=== PATIENT | female | born 1950 | race Caucasian/White ===

== ENCOUNTER 2018-10-26 14:58 | Inpatient (IN) | payer MEDICARE, OTHER ==
[2018-10-26 15:49] LABS: Actual Bicarbonate (HCO3a) 8.2 mEq/L (22-28); Analyzer IN Cardio ER; Base Excess (BEa) -16.3 mEq/L (-2.0 to +3.0); Calcium, Ionized 0.97 mmol/L (1.12-1.30); Carboxyhemoglobin (COHb) 0.3 gm% (0.0-3.0); Hemoglobin (Hb) 12.5 g/dL (12.0-16.0); O2 Tension (PaO2) 110.4 mmHg (> 80.0); Potassium - ABG Lab 3.73 mmol/L (3.70-5.30); pH, Arterial 7.27 (7.35-7.45)
[2018-10-26 15:54] LABS: CO2 Tension 18.2 mmHg (35.0-45.0); Puncture Site LRA
[2018-10-26 16:32] LABS: CKMB 28.4 ng/mL (0-6.6)
[2018-10-26 19:45] LABS: Troponin I 0.044 ng/mL (< 0.028)
[2018-10-26] MEDS: Sodium Bicarbonate 150 MEQ in Dextrose 5% in Water 1,000 ML IV SCH (19:45)
[2018-10-26] MEDS ORDERED: Guaifenesin DM 100-10/5 ML UDCUP PO PRN (19:49)
[2018-10-26] MEDS ORDERED: Promethazine HCl 25 MG/ML VIAL IM/IV PRN (19:49)
[2018-10-26] MEDS ORDERED: Senokot S 8.6-50 MG TAB PO PRN (19:49)
[2018-10-26] MEDS ORDERED: Ondansetron PF 4 MG/2 ML Vial IVP PRN (19:49)
[2018-10-26] MEDS ORDERED: Bisacodyl 10 MG SUPP PR PRN (19:49)
[2018-10-26] MEDS ORDERED: Magnesium 2 GM/50 ML 2 GM in Premix Bag 1 BAG IVPB SCH (20:15)
[2018-10-26] MEDS: Multivitamins, Adult 10 ML, Folic Acid 1 MG, Thiamine HCl 100 MG in Dextrose 5 %-0.45 %... IV SCH (20:31)
[2018-10-26] MEDS: Pantoprazole 40 MG VIAL IVP SCH (20:32)
[2018-10-26] MEDS: Acetaminophen 325 MG TAB PO PRN (20:32)
--- NOTE | 2018-10-26 20:47 | HP ---
REASON FOR ADMISSION: Acute renal failure, severe metabolic acidosis, mild increased osmolal gap, alcohol abuse, [id number] [place], thrombocytopenia. HISTORY OF PRESENTING ILLNESS: The patient gives history of vague symptoms including headache in the occipital area for the last 9 months. She has been feeling sick to her stomach and has been having off and on vomiting episodes, which has led to her not eating well. The patient says these frequencies were usually 5 to 6 weeks and now has become weekly episodes. This morning, she felt like she had pain all over her body and was feeling very weak. Her upper thighs were painful to touch on both sides. She could not walk well and was wobbly. She in fact fell three times from last evening. The disturbance with walking is from last 5 to 6 days now. No complaints of urinary frequency or urgency. She has not noticed any change in her urinary color as far as she remembers. No complaints of chest pain or palpitation. No complaints of fever, cough, or expectoration. She denies drinking anything, but vodka and Mae. From yesterday evening, she has not been able to keep anything down as she has been vomiting. It is not bilious, but has severe retching and nauseous feeling. No prior history of gastric ulcers. Has retrosternal burning sensation from retching now. PAST MEDICAL AND SURGICAL HISTORY: Prior colonoscopies x2 with no malignancy or polyps removed, hypertension, depression, left total knee replacement, has removal of all of her top teeth and four on the bottom, and alcohol abuse. CURRENT MEDICATIONS: She takes; 1. Losartan with hydrochlorothiazide 100/25 mg p.o. daily. 2. Sertraline 50 mg daily. 3. Toprol-XL 50 mg daily. 4. Bupropion extended release 100 mg daily. ALLERGIES: NO KNOWN DRUG ALLERGIES. PERSONAL HISTORY: Drinks 2 to 3 drinks of vodka. The patient says she drinks 1 -1/2 ounces of vodka x3 at bedtime. She drinks Mae which she makes every month or so at home. She occasionally drinks rum with Coca Cola, but usually is when they have a get-together or so. Does not abuse drugs. No history of smoking. She ambulates by herself. Lives with her . 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 FAMILY HISTORY: Mother at the age of 89 years from natural causes. Father at the age of 82 years, he has had history of obsessive compulsive disorder. The patient has a son, who lives in [place]. REVIEW OF SYSTEMS: CONSTITUTIONAL: Negative for weight loss or gain, ability to conduct usual activities. SKIN: Negative for rash, itching. EYES: Negative for double vision, pain. ENT/MOUTH: Negative for nose bleeding, neck stiffness, pain, tenderness. CARDIOVASCULAR: Negative for palpitations, dyspnea on exertion, orthopnea. RESPIRATORY: Negative for shortness of breath, wheezing, cough, hemoptysis, fever or night sweats. GASTROINTESTINAL: Negative for poor appetite, abdominal pain, heartburn, nausea , vomiting, constipation, or diarrhea. GENITOURINARY: Negative for urgency, frequency, dysuria, nocturia. MUSCULOSKELETAL: Negative for pain, swelling. NEUROLOGIC/PSYCHIATRIC: Negative for anxiety, depression. ALLERGY/IMMUNOLOGIC: Negative for skin rash, bleeding tendency. PHYSICAL EXAMINATION: GENERAL: The patient is a 68-year-old female, who is currently not in any acute distress. VITAL SIGNS: Blood pressure 124/56, pulse 96 per minute, respiratory rate 20 per minute, temperature 97.9 degrees Fahrenheit, saturating 100% on room air. NECK: Supple. No elevated JVD. HEENT: Eyes; extraocular muscles intact. Pupils are reacting to light. Oral cavity, mucous membranes are dry. No exudates or congestion. CARDIOVASCULAR: S1 and S2, heard. Regular rhythm. RESPIRATORY: Air entry 1+ bilateral. No rales or rhonchi. ABDOMEN: Soft. Bowel sounds heard. No tenderness, rigidity, or guarding. EXTREMITIES: No peripheral edema or calf tenderness. VASCULAR SYSTEM: Peripheral pulses 1+ bilateral. No ischemic ulcerations or gangrene. CENTRAL NERVOUS SYSTEM: No gross focal deficits noted. The patient has some hyperesthesias on bilateral thighs. She moves all 4 extremities with good strength. Reflexes are 2+ bilateral. Babinski is downgoing. PSYCHIATRIC: The patient is a bit depressed, otherwise no hallucinations or delusions. LABORATORY DATA: White count of 5, hemoglobin and hematocrit are 13 and 42, platelet count 76, MCV is 108, with 79% neutrophils. Blood gas done shows a pH of 7.27, pCO2 of 18, PO2 of 110, bicarb on the blood gas is 8.2, carboxyhemoglobin 0.3, methemoglobin levels are 1.0 on the blood gas. Sodium 132, chloride 78, serum bicarb 9, BUN 44, creatinine 4.3, anion gap of 49, lactic acid 3.1, serum osmolality 303, magnesium 1.2. AST is 101, ALT 54, alkaline phosphatase 152, total bilirubin 1.7. CK level 727, CK-MB 29, troponin-I 0.03, BNP is 33. Albumin 4.4, lipase is 22. Salicylates are less than 8. Plasma alcohol 21. Chest x-ray done, shows no acute cardiopulmonary process. CT brain done, shows no acute intracranial process. CLINICAL IMPRESSION AND PLAN: The patient will be admitted to telemetry for acute renal failure; severe metabolic acidosis; mild increased osmolar gap at 13; macrocytosis, likely due to alcohol usage; elevated LFTs, likely due to alcoholic hepatitis; [id number] myocardial infarction with troponin of 0.03. I have consulted Dr. Bah for Nephrology. The patient will be on banana bag at 60 mL/hour along with D5 water with sodium bicarbonate at 100 mL/hour per Nephrology's advice. We will obtain urine electrolytes, urinalysis, urine osmolality, urine drug screen, folic acid and B12 levels, acute hepatitis panel, thyroid function tests. The patient is currently not taking any thyroid replacement, but she has been on Synthroid before. Hence, we will obtain a stat TSH. We will also obtain ultrasound of the kidneys , echo with 2D Doppler for LV function, MRI brain in view of the patient's slow cognition with alcohol intake and wobbly gait, to rule out alcohol induced injury, also to rule out PRES, although her blood pressures have been stable now. She also has vague occipital headache with thigh parasthesias, vomiting to r/o mass. We will continue to closely monitor her on telemetry. The patient is a full code. This was discussed with her and power of quality auditor is her , who is also currently hospitalized here. Job ID: [id number] MTDD
[2018-10-26 20:49] LABS: Iron 116 ug/dL (50-170); Iron Binding Capacity, Total 188 mcg/dL (265-497)
[2018-10-26 20:50] LABS: Bilirubin Large (Negative); Blood, Urine Large (Negative); Clarity CLOUDY (Clear); Glucose, Urine (Dipstick) Negative (Negative); Leukocyte Negative (Negative); Nitrite Negative (Negative); Protein, Urine (Dipstick) 100 mg/dL (Neg-Trace); Specific Gravity, Urine 1.013 (1.002-1.036); pH, Urine 5.5 (5.0-9.0)
[2018-10-26 20:53] LABS: Hyaline Casts/LPF 7-10 HYALINE CAST LPF (0-3 Hyaline); Pathc Cast-AUWi Flag 1.49 (0-2.49)
[2018-10-26 20:57] LABS: Medtox Reader # READER 1
[2018-10-26 20:58] LABS: Amphetamine Not Detected (NotDetected); Barbiturates Screen Not Detected (NotDetected); Benzodiazepine Screen Not Detected (NotDetected); Cocaine Metabolite Screen Not Detected (NotDetected); Medtox Control Line Valid? VALID (VALID); Methadone Not Detected (NotDetected); Methamphetamine Not Detected (NotDetected); Opiate Screen Not Detected (NotDetected); Oxycodone Screen Not Detected (NotDetected); Phencyclidine (PCP) Not Detected (NotDetected); THC/Cannabinoid Screen Not Detected (NotDetected); Tricyclic Screen Not Detected (NotDetected); Yeast-AUWi Flag 223.6 (0-25.0)
[2018-10-26 21:07] LABS: Potassium, Urine 30.3 mmol/L
[2018-10-26 21:21] LABS: Folate (Folic Acid) 1.9 ng/mL (7.0-31.4)
[2018-10-26 21:23] LABS: Bacteria/HPF Rare-Few HPF (None Seen)
[2018-10-26 21:55] LABS: Thyroid Stimulating Hormone 1.1304 uIU/mL (0.35-4.94)
--- NOTE | 2018-10-26 22:28 | ULT ---
US Renal Bilateral STANDARD: 10/26/2018 9:23 PM CLINICAL HISTORY: Acute kidney injury; evaluate for obstruction. STUDY: Renal ultrasound COMPARISON: None. FINDINGS: Right kidney: Echogenicity: Normal. Masses/cysts: None. Hydronephrosis: None. Calcifications: None. Length: 9.7 cm Left kidney: Echogenicity: Normal. Masses/cysts: None. Hydronephrosis: None. Calcifications: None. Length: 10.0 cm Limited visualization of the urinary bladder is unremarkable. Both ureteral jets were seen. IMPRESSION: Unremarkable renal ultrasound
[2018-10-26 22:37] LABS: HBCM Index 0.07 S/CO (0-0.79); HBSAg Index 0.24 S/CO (0-0.99); Hep A IgM AB Non-Reactive (NonReactive); Hep A IgM S/CO 0.38 S/CO (0-0.79); Hep B Surf Ag Non-Reactive S/CO (NonReactive); Hep C IgG Ab Non-Reactive (NonReactive); Hep C Index 0.06 S/CO (0-0.79); Hepatitis B Core IgM Abs Non-Reactive (NonReactive)
[2018-10-27 05:25] LABS: Albumin 3.7 g/dL (3.4-4.8); Anion Gap 31 mmol/L (10-20); BUN (Urea Nitrogen) 47 mg/dL (9.8-20.1); Calc. Creatinine Clearance 16 mL/min (70-130); Calcium 7.7 mg/dL (7.8-10.44); Carbon Dioxide 18 mmol/L (23-31); Chloride 85 mmol/L (98-107); Estimated GFR-MDRD 12; Glucose 121 mg/dL (80-115); Sodium 131 mmol/L (136-145)
[2018-10-27 05:28] LABS: Phosphorus 1.7 mg/dL (2.3-4.7); Potassium 2.9 mmol/L (3.5-5.1)
[2018-10-27] MEDS: Levothyroxine Sodium 125 MCG TAB PO SCH (05:33)
[2018-10-27 05:44] LABS: Free T4 (Free Thyroxine) 0.72 ng/dL (0.70-1.48); Thyroid Stimulating Hormone 1.1291 uIU/mL (0.35-4.94)
[2018-10-27] MEDS ORDERED: Potassium Chloride 20 MEQ TAB PO SCH (05:45)
[2018-10-27 06:11] LABS: #Lymphocytes 0.7 thou/uL (1.20-3.40); #Monocytes 0.2 thou/uL (0.11-0.59); #Neutrophils 1.9 thou/uL (1.40-6.50); %Eosinophils 1.2 % (0.0-10.0); %Lymphocytes 23.1 % (21.0-51.0); %Monocytes 6.9 % (0.0-10.0); %Neutrophils 68.8 % (42.0-75.0); Hemoglobin 11.6 g/dL (12.0-16.0); MDiff Complete? YES; Macrocytosis SLIGHT = 6-15 cells (100X) (0-5/hpf); Mean Corpuscular HGB CONC 34.4 g/dL (32.0-36.0); Mean Corpuscular Hemoglobin 35.8 pg (27.0-31.0); Mean Platelet Volume 9.2 fL (7.4-10.4); Platelet Count 53 thou/uL (130-400); Platelet Morphology Comment Appears Decreased; RBC Distribution Width 12.8 % (11.5-14.5); Red Blood Cell (RBC) Count 3.24 mill/uL (4.20-5.40); White Blood Cell (WBC) Count 2.8 thou/uL (4.8-10.8)
[2018-10-27] MEDS ORDERED: Sodium Bicarbonate 75 MEQ in Sodium Chloride 0.45% 1,000 ML IV SCH (08:30)
[2018-10-27] MEDS: K-Phos Neutral 250 MG TAB PO SCH ×3 (08:48→17:27)
[2018-10-27] MEDS: Folic Acid 1 MG TAB PO SCH (08:48)
[2018-10-27] MEDS: Bupropion 100 MG SR TAB PO SCH (08:48)
[2018-10-27] MEDS: Cyanocobalamin (Vitamin B-12) 1,000 MCG TAB PO SCH (08:49)
[2018-10-27] MEDS: Pantoprazole 40 MG VIAL IVP SCH ×2 (08:50→20:26)
[2018-10-27] MEDS ORDERED: Enoxaparin Sodium 40 MG/0.4 ML SYRINGE SC SCH (09:00)
[2018-10-27] MEDS: Sodium Bicarbonate 150 MEQ in Dextrose 5% in Water 1,000 ML IV SCH (09:05)
--- NOTE | 2018-10-27 09:23 | PDOC.PN ---
- Subjective Encounter Start Date: 10/27/18 Encounter Start Time: 09:20 Patient with chronic alcohol abuse, chronic intermittent N/V associated with occipital headaches admitted with acute onset of nausea, vomiting and poor oral intake as well as generalized body aches, gait instability and falls. Patient still using alcohol. Was found to have severe AG mA, JENNA and electrolytes derangements. Feeling better today. Tolerating soft diet. No vomiting. - Objective Resuscitation Status - Order Detail: 10/26/18 19:42 Resuscitation Status Routine Resuscitation Status: FULL: Full Resuscitation Discussed with: POA: Vital Signs & Weight: Vital Signs (12 hours) Temp Pulse Resp BP BP Pulse Ox 10/27/18 07:53 97.9 F 90 16 96/53 L 100 10/27/18 04:07 126/58 L 10/27/18 03:45 97.5 F L 92 17 126/58 L 99 10/27/18 00:03 97/54 L 10/26/18 23:59 98.3 F 80 14 97/54 L 99 Weight Weight 158 lb I&O: 10/26/18 10/27/18 10/28/18 06:59 06:59 06:59 Intake Total 1065 Output Total 1100 Balance -35 Result Diagrams: 10/27/18 04:50 10/27/18 04:50 Phys Exam - Physical Examination Constitutional: NAD HEENT: PERRLA, moist MMs Neck: no JVD, supple Respiratory: no wheezing, no rales, no rhonchi, clear to auscultation bilateral Cardiovascular: RRR, no significant murmur, no rub, gallop Gastrointestinal: soft, no distention, positive bowel sounds questionable epigastric tenderness Musculoskeletal: no edema, pulses present Neurological: non-focal, moves all 4 limbs Psychiatric: A&O x 3 Dx/Plan (1) Acute renal failure Status: Acute (2) High anion gap metabolic acidosis Code(s): E87.2 - ACIDOSIS Status: Acute (3) Dehydration Code(s): E86.0 - DEHYDRATION Status: Acute (4) Hyponatremia Code(s): E87.1 - HYPO-OSMOLALITY AND HYPONATREMIA Status: Acute (5) Hypokalemia Code(s): E87.6 - HYPOKALEMIA Status: Acute (6) Hypomagnesemia Code(s): E83.42 - HYPOMAGNESEMIA Status: Acute (7) Hypophosphatemia Code(s): E83.39 - OTHER DISORDERS OF PHOSPHORUS METABOLISM Status: Acute (8) Folic acid deficiency Code(s): E53.8 - DEFICIENCY OF OTHER SPECIFIED B GROUP VITAMINS Status: Acute (9) Macrocytic anemia Code(s): D53.9 - NUTRITIONAL ANEMIA, UNSPECIFIED Status: Acute (10) Chronic alcohol abuse Code(s): F10.10 - ALCOHOL ABUSE, UNCOMPLICATED Status: Acute (11) Nausea and vomiting Code(s): R11.2 - NAUSEA WITH VOMITING, UNSPECIFIED Status: Acute (12) Depression Code(s): F32.9 - MAJOR DEPRESSIVE DISORDER, SINGLE EPISODE, UNSPECIFIED Status : Acute (13) Gait instability Code(s): R26.81 - UNSTEADINESS ON FEET Status: Acute (14) Falls Code(s): W19.XXXA - UNSPECIFIED FALL, INITIAL ENCOUNTER Status: Acute (15) Chronic headaches Code(s): R51 - HEADACHE Status: Acute (16) HTN (hypertension) Code(s): I10 - ESSENTIAL (PRIMARY) HYPERTENSION Status: Acute - Plan Start B12 aqnd folic acid supplementation -: Continue bicarb containing crystalloid and monitor renal function -: Replete electrolytes and monitor. -: Advance diet as tolerated. -: PT/OT eval and treat. * .
[2018-10-27] MEDS: Lorazepam 0.5 MG TAB PO PRN ×2 (10:37→20:26)
--- NOTE | 2018-10-27 11:40 | MRI ---
Exam: Brain MRI without contrast HISTORY: Possible alcoholic because brain injury. PRES. Eval for CVA. COMPARISON: None FINDINGS: Calvarial marrow signal intensity: Appropriate T1 signal Gradient echo sequence: No hemorrhage Brain parenchyma: No mass, mass effect or midline shift. Brain volume, age-appropriate. Cortical hamilton-white matter differentiation: Preserved Restricted diffusion: Central arterial flow voids are maintained. Absent restricted diffusion White matter signal intensities:Minimal T2 and FLAIR white matter hyperintensities, nonspecific. Sinuses: Adequate aeration of the paranasal sinuses and mastoid air cells. IMPRESSION: 1. Absent restricted diffusion. No acute infarct 2. Minimal T2 and FLAIR white matter hyperintensities, of doubtful significance
--- NOTE | 2018-10-27 13:05 | PRG ---
DATE OF SERVICE: 10/27/2018 SUBJECTIVE: Patient was seen and examined at bedside and overnight events noted. Patient denies any shortness of breath or chest pain or palpitation. No history of nausea or vomiting or diarrhea or fever or chills or cramps. OBJECTIVE: GENERAL: This is a well-built female, in no apparent distress. VITAL SIGNS: Temperature 97.9. Heart rate 90. Respiratory rate 16. Blood pressure 126/58. HEENT: Atraumatic, normocephalic. Oral mucosa is moist. NECK: Supple. CARDIOVASCULAR: S1, S2 heard. Rate and rhythm regular. RESPIRATORY: Clear to auscultation. GASTROINTESTINAL: Abdomen is soft. MUSCULOSKELETAL: No tenderness. No edema. DERMATOLOGIC: No skin rash. NEUROLOGIC: Alert and awake and oriented x3. No focal neurologic deficits. Moving all the extremities. PSYCHIATRIC: Mood and affect normal. LABORATORY DATA: Potassium is 2.9, BUN is 47, creatinine is 3.7, calcium is 7.7 , phosphorus is 1.7, and magnesium 2.7. . TSH 1.1. ASSESSMENT: 1. Acute kidney injury, getting better most likely from volume depletion. We will continue hydration. 2. Hypokalemia. Replace and monitor. 3. Alcoholic ketoacidosis - will continue hydration and counseled to quit alcohol use. 4. Hyponatremia. 5. High Anion gap acidosis, most likely from ketosis. 6. Starvation ketoacidosis- continue hydration as tolerated. 7. Hypophosphatemia. 8. Microcytic anemia. 9. Refeeding syndrome - continue close monitoring and aggressive IV supplements. Plan to continue IV fluids. Replete electrolytes aggressively. We will monitor. Continue hydration as tolerated. Job ID: [id number] [facility]
[2018-10-27] MEDS: Acetaminophen 325 MG TAB PO PRN (20:26)
[2018-10-27] MEDS: Multivitamins, Adult 10 ML, Folic Acid 1 MG, Thiamine HCl 100 MG in Dextrose 5 %-0.45 %... IV SCH (21:38)
[2018-10-28 04:56] LABS: Albumin 3.5 g/dL (3.4-4.8); Anion Gap 16 mmol/L (10-20); BUN (Urea Nitrogen) 26 mg/dL (9.8-20.1); BUN/Creatinine Ratio 12.04; Calc. Creatinine Clearance 28 mL/min (70-130); Calcium 7.2 mg/dL (7.8-10.44); Carbon Dioxide 35 mmol/L (23-31); Chloride 83 mmol/L (98-107); Estimated GFR-MDRD 23; Glucose 131 mg/dL (80-115); Magnesium 1.2 mg/dL (1.6-2.6); Phosphorus Less than 1.0 mg/dL (2.3-4.7); Potassium 2.6 mmol/L (3.5-5.1); Sodium 131 mmol/L (136-145)
[2018-10-28] MEDS ORDERED: Magnesium 2 GM/50 ML 2 GM in Premix Bag 1 BAG IVPB SCH ×2 (05:30→10:15)
[2018-10-28] MEDS ORDERED: Potassium Chloride 20 MEQ TAB PO SCH (05:30)
[2018-10-28] MEDS ORDERED: Potassium Phosphate 15 MMOL in Sodium Chloride 0.9% 250 ML 250 ML IVPB SCH (06:00)
[2018-10-28] MEDS: Levothyroxine Sodium 125 MCG TAB PO SCH (06:11)
[2018-10-28] MEDS: Bupropion 100 MG SR TAB PO SCH (08:54)
[2018-10-28] MEDS: Folic Acid 1 MG TAB PO SCH (08:54)
[2018-10-28] MEDS: Enoxaparin Sodium 30 MG/0.3 ML SYRINGE SC SCH (08:54)
[2018-10-28] MEDS: Cyanocobalamin (Vitamin B-12) 1,000 MCG TAB PO SCH (08:54)
[2018-10-28] MEDS: Pantoprazole 40 MG VIAL IVP SCH ×2 (08:54→20:03)
[2018-10-28] MEDS ORDERED: Magnesium 2 GM/NS 0.9% 100 ML 2 GM in Premix Bag 1 BAG IVPB SCH (10:15)
--- NOTE | 2018-10-28 10:39 | PDOC.PN ---
- Subjective Encounter Start Date: 10/28/18 Encounter Start Time: 10:38 Subjective: Feeling better. Tolerating oral intake, -: Denied diarrhea, dysuria or fever - Objective Resuscitation Status - Order Detail: 10/26/18 19:42 Resuscitation Status Routine Resuscitation Status: FULL: Full Resuscitation Discussed with: POA: Vital Signs & Weight: Vital Signs (12 hours) Temp Pulse Resp BP BP Pulse Ox 10/28/18 08:54 97 10/28/18 07:53 97.8 F 97 16 106/56 L 109/56 L 97 Weight Admit Weight 158 lb Weight 157 lb 9 oz I&O: 10/27/18 10/28/18 10/29/18 06:59 06:59 06:59 Intake Total 1065 3360 1400 Output Total 1100 1200 1200 Balance -35 2160 200 Result Diagrams: 10/27/18 04:50 10/28/18 04:03 Phys Exam - Physical Examination Constitutional: NAD HEENT: PERRLA, moist MMs Neck: no JVD, supple Respiratory: no wheezing, no rales, no rhonchi, clear to auscultation bilateral Cardiovascular: RRR, no significant murmur Gastrointestinal: soft, non-tender, no distention, positive bowel sounds Musculoskeletal: no edema, pulses present Neurological: non-focal awake and conversational. Moving all limbs Psychiatric: normal affect, A&O x 3 Dx/Plan (1) Acute renal failure Status: Acute (2) High anion gap metabolic acidosis Code(s): E87.2 - ACIDOSIS Status: Acute (3) Dehydration Code(s): E86.0 - DEHYDRATION Status: Acute (4) Hyponatremia Code(s): E87.1 - HYPO-OSMOLALITY AND HYPONATREMIA Status: Acute (5) Hypokalemia Code(s): E87.6 - HYPOKALEMIA Status: Acute (6) Hypomagnesemia Code(s): E83.42 - HYPOMAGNESEMIA Status: Acute (7) Hypophosphatemia Code(s): E83.39 - OTHER DISORDERS OF PHOSPHORUS METABOLISM Status: Acute (8) Folic acid deficiency Code(s): E53.8 - DEFICIENCY OF OTHER SPECIFIED B GROUP VITAMINS Status: Acute (9) Macrocytic anemia Code(s): D53.9 - NUTRITIONAL ANEMIA, UNSPECIFIED Status: Acute (10) Chronic alcohol abuse Code(s): F10.10 - ALCOHOL ABUSE, UNCOMPLICATED Status: Acute (11) Nausea and vomiting Code(s): R11.2 - NAUSEA WITH VOMITING, UNSPECIFIED Status: Acute (12) Depression Code(s): F32.9 - MAJOR DEPRESSIVE DISORDER, SINGLE EPISODE, UNSPECIFIED Status : Acute (13) Gait instability Code(s): R26.81 - UNSTEADINESS ON FEET Status: Acute (14) Falls Code(s): W19.XXXA - UNSPECIFIED FALL, INITIAL ENCOUNTER Status: Acute (15) Chronic headaches Code(s): R51 - HEADACHE Status: Acute (16) HTN (hypertension) Code(s): I10 - ESSENTIAL (PRIMARY) HYPERTENSION Status: Acute (17) Demand ischemia of myocardium Code(s): I24.8 - OTHER FORMS OF ACUTE ISCHEMIC HEART DISEASE Status: Acute Comment: Present on admission. (18) Acute encephalopathy Code(s): G93.40 - ENCEPHALOPATHY, UNSPECIFIED Status: Acute Comment: Present on admission. Due to folate deficiency, alcohol abuse and JENNA. No acute pathology on MRI - Plan Replete serum potassium, phosphorus and maagnesium. -: Continue multivitamin supplementation. -: continue IVF and monitor renal function. * .
[2018-10-28] MEDS: Potassium Chloride 20 MEQ TAB PO SCH ×2 (11:00→17:46)
[2018-10-28] MEDS: Acetaminophen 325 MG TAB PO PRN (11:02)
--- NOTE | 2018-10-28 12:41 | PRG ---
DATE OF SERVICE: 10/28/2018 SUBJECTIVE: Patient was seen and examined at bedside and overnight events noted. Patient denies any shortness of breath or chest pain or palpitation. No history of nausea or vomiting or diarrhea or fever or chills or cramps. OBJECTIVE: GENERAL: This is a well-built female, in no apparent distress. VITAL SIGNS: Temperature 97.8. Heart rate 97. Respiratory rate 16, blood pressure 101/60. HEENT: Atraumatic, normocephalic. Oral mucosa is moist. NECK: Supple. CARDIOVASCULAR: S1, S2 heard. Rate and rhythm regular. RESPIRATORY: Clear to auscultation. GASTROINTESTINAL: Abdomen is soft. MUSCULOSKELETAL: No tenderness. No edema. DERMATOLOGIC: No skin rash. NEUROLOGIC: Alert and awake and oriented x3. No focal neurologic deficits. Moving all the extremities. PSYCHIATRIC: Mood and affect normal. LABORATORY DATA: Potassium 2.6, BUN is 26, and creatinine is 2.1. ASSESSMENT AND PLAN: 1. Acute kidney injury, getting better with hydration. 2. Refeeding syndrome with multiple electrolyte disturbances. 3. Hypokalemia. Agree with aggressive supplements. 4. Hypomagnesemia with hypophosphatemia. Continue aggressive supplements and monitor labs at least q.12 hours. 5. Metabolic acidosis, better and now alkalosis present. We will stop bicarb drip. 6. Hypocalcemia. 7. Microcytic anemia with folate deficiency. 8. Alcoholic starvation ketoacidosis. Labs getting better. We will replace electrolytes aggressively with close monitoring to avoid refeeding syndrome. We will follow. Job ID: [id number]
[2018-10-28 14:38] LABS: Potassium 3.4 mmol/L (3.5-5.1)
[2018-10-28 16:29] LABS: Anion Gap 13 mmol/L (10-20); BUN (Urea Nitrogen) 18 mg/dL (9.8-20.1); Calc. Creatinine Clearance 36 mL/min (70-130); Calcium 6.9 mg/dL (7.8-10.44); Carbon Dioxide 36 mmol/L (23-31); Chloride 82 mmol/L (98-107); Estimated GFR-MDRD 31; Glucose 148 mg/dL (80-115); Potassium 3.3 mmol/L (3.5-5.1); Sodium 128 mmol/L (136-145)
[2018-10-28 16:33] LABS: Phosphorus Less than 1.0 mg/dL (2.3-4.7)
[2018-10-28] MEDS: Multivitamins, Adult 10 ML, Folic Acid 1 MG, Thiamine HCl 100 MG in Dextrose 5 %-0.45 %... IV SCH (20:03)
[2018-10-29] MEDS: Levothyroxine Sodium 125 MCG TAB PO SCH (05:40)
[2018-10-29 06:47] LABS: Albumin 3.6 g/dL (3.4-4.8); Anion Gap 12 mmol/L (10-20); BUN (Urea Nitrogen) 12 mg/dL (9.8-20.1); BUN/Creatinine Ratio 9.68; Calc. Creatinine Clearance 49 mL/min (70-130); Calcium 7.5 mg/dL (7.8-10.44); Carbon Dioxide 34 mmol/L (23-31); Chloride 88 mmol/L (98-107); Estimated GFR-MDRD 43; Glucose 125 mg/dL (80-115); Magnesium 1.4 mg/dL (1.6-2.6); Potassium 3.8 mmol/L (3.5-5.1); Sodium 130 mmol/L (136-145)
[2018-10-29 06:53] LABS: Phosphorus Less than 1.0 mg/dL (2.3-4.7)
--- NOTE | 2018-10-29 08:21 | PDOC.PN ---
- Subjective Encounter Start Date: 10/29/18 Encounter Start Time: 08:23 Subjective: muscles calender tender, eating - Objective Resuscitation Status - Order Detail: 10/26/18 19:42 Resuscitation Status Routine Resuscitation Status: FULL: Full Resuscitation Discussed with: POA: [place] Reviewed: Yes Vital Signs & Weight: Vital Signs (12 hours) Temp Pulse Resp BP BP Pulse Ox 10/29/18 07:32 98.5 F 74 16 113/58 L 113/58 L 96 10/29/18 04:00 98.1 F 72 16 108/57 L 108/57 L 96 Weight Admit Weight 158 lb Weight 161 lb 6.4 oz I&O: 10/28/18 10/29/18 10/30/18 06:59 06:59 06:59 Intake Total 3360 5370 Output Total 1200 3800 Balance 2160 1570 Result Diagrams: 10/27/18 04:50 10/29/18 05:58 Phys Exam - Physical Examination Neck: no JVD Respiratory: clear to auscultation bilateral Cardiovascular: RRR, no significant murmur Gastrointestinal: soft, non-tender, positive bowel sounds Musculoskeletal: no edema poor FNF exam Dx/Plan (1) Acute renal failure Status: Acute Qualifiers: Acute renal failure type: unspecified Qualified Code(s): N17.9 - Acute kidney failure, unspecified (2) Chronic alcohol abuse Code(s): F10.10 - ALCOHOL ABUSE, UNCOMPLICATED Status: Acute (3) Demand ischemia of myocardium Code(s): I24.8 - OTHER FORMS OF ACUTE ISCHEMIC HEART DISEASE Status: Acute Comment: Present on admission. (4) Folic acid deficiency Code(s): E53.8 - DEFICIENCY OF OTHER SPECIFIED B GROUP VITAMINS Status: Acute (5) Gait instability Code(s): R26.81 - UNSTEADINESS ON FEET Status: Acute (6) HTN (hypertension) Code(s): I10 - ESSENTIAL (PRIMARY) HYPERTENSION Status: Chronic Qualifiers: Hypertension type: essential hypertension Qualified Code(s): I10 - Essential (primary) hypertension (7) High anion gap metabolic acidosis Code(s): E87.2 - ACIDOSIS Status: Acute (8) Hypokalemia Code(s): E87.6 - HYPOKALEMIA Status: Acute (9) Hypomagnesemia Code(s): E83.42 - HYPOMAGNESEMIA Status: Resolved (10) Hypophosphatemia Code(s): E83.39 - OTHER DISORDERS OF PHOSPHORUS METABOLISM Status: Acute (11) Nausea and vomiting Code(s): R11.2 - NAUSEA WITH VOMITING, UNSPECIFIED Status: Acute Qualifiers: Vomiting type: unspecified Vomiting Intractability: unspecified Qualified Code(s): R11.2 - Nausea with vomiting, unspecified (12) Cerebellar ataxia Code(s): G11.9 - HEREDITARY ATAXIA, UNSPECIFIED Status: Acute Comment: due to chronic alcohol abuse - Plan will order CK, ESR, Cortisol -: discuss with Dr Bah -: cont vitamin , phosphate supplementation * .
[2018-10-29] MEDS: Cyanocobalamin (Vitamin B-12) 1,000 MCG TAB PO SCH (09:49)
[2018-10-29] MEDS: Enoxaparin Sodium 30 MG/0.3 ML SYRINGE SC SCH (09:49)
[2018-10-29] MEDS: Folic Acid 1 MG TAB PO SCH (09:49)
[2018-10-29] MEDS: Bupropion 100 MG SR TAB PO SCH (09:49)
[2018-10-29] MEDS: Pantoprazole 40 MG VIAL IVP SCH ×2 (09:50→21:26)
--- NOTE | 2018-10-29 11:07 | CON ---
DATE OF CONSULTATION: 10/26/2018 CONSULTING PHYSICIAN: Donta Platt MD REASON FOR CONSULT: Acute renal failure. REASON FOR ADMISSION: Not feeling well. HISTORY OF PRESENT ILLNESS: This is a 68-year-old female with history of hypertension and depression, came to the hospital with weakness and nausea vomiting for almost a week. She admits drinking vodka and tequila and she admits not drinking for a few days, but she started having nausea, vomiting and also unsteady gait and was taken to the hospital. She was found to have a creatinine of 4.35 with potassium 4.0, bicarb of 9, and a pH of 7.27 on ABG. Nephrology was consulted. The patient is able give history, but not a good historian. No chest pain or palpitation reported. No fever or chills. PAST MEDICAL HISTORY: Positive for depression, hypertension. PAST SURGICAL HISTORY: Colonoscopy. HOME MEDICATIONS: 1. Losartan and hydrochlorothiazide. 2. Sertraline. 3. Toprol. 4. Bupropion. ALLERGIES: NO KNOWN DRUG ALLERGIES. SOCIAL HISTORY: She admits drinking tequila and vodka and is not smoking. No illicit drug abuse. The patient denies any other alcohol intake. FAMILY HISTORY: No history of kidney disease. REVIEW OF SYSTEMS: CONSTITUTIONAL: Negative for weight loss or gain, ability to conduct usual activities. SKIN: Negative for rash, itching. EYES: Negative for double vision, pain. ENT/MOUTH: Negative for nose bleeding, neck stiffness, pain, tenderness. CARDIOVASCULAR: Negative for palpitations, dyspnea on exertion, orthopnea. RESPIRATORY: Negative for shortness of breath, wheezing, cough, hemoptysis, fever or night sweats. GASTROINTESTINAL: Negative for poor appetite, abdominal pain, heartburn, nausea, vomiting, constipation, or diarrhea. GENITOURINARY: Negative for urgency, frequency, dysuria, nocturia. MUSCULOSKELETAL: Negative for pain, swelling. NEUROLOGIC/PSYCHIATRIC: Negative for anxiety, depression. ALLERGY/IMMUNOLOGIC: Negative for skin rash, bleeding tendency. Rest all negative. PHYSICAL EXAMINATION: GENERAL: This is a well-built female, in no apparent distress. VITAL SIGNS: Temperature 97.3, pulse 73, respiratory rate . HEENT: Atraumatic, normocephalic. Oral mucosa is dry. NECK: Supple. CV: S1, S2 heard. Rate and rhythm regular. RESPIRATORY: Clear. GI: Abdomen is soft. MUSCULOSKELETAL: No tenderness. No edema. DERMATOLOGIC: No skin rash . NEUROLOGICAL: Alert, awake. Moving all extremities. PSYCHIATRIC: Depressed. LABORATORY DATA: Hemoglobin is 7.1. Potassium 4.0, BUN is 44, creatinine is 4.3, bicarb is 9, anion gap is 49. Urine ketones are positive. AST is 101. MCV is 108. ASSESSMENT AND PLAN: 1. Acute kidney injury, most likely from volume depletion. Agree with hydration for now. 2. Severe metabolic acidosis with high anion gap. Plan is to give one bag of sodium bicarbonate, gap is normal, corrected for alcoholism, most likely from starvation and alcoholic ketosis. 3. Hyponatremia, mild. 4. Hypochloremia. 5. Lactic acidosis. 6. Elevated AST. 7. Elevated CK level. 8. Microcytic anemia, alcohol abuse. 9. Starvation/alcoholic ketoacidosis. 10. Continue IV hydration with bicarb supplementation. Avoid nephrotoxins. We will monitor. No acute indication for dialysis. We will follow. Thank you for the consult. Job ID: [id number]
--- NOTE | 2018-10-29 11:35 | PRG ---
DATE OF SERVICE: 10/29/2018 SUBJECTIVE: A 68-year-old female, being seen for acute kidney injury. The patient denies any nausea, vomiting, or chest pain. OBJECTIVE: CONSTITUTIONAL: Awake, alert, in no acute distress. VITAL SIGNS: Afebrile, pulse 74, breathing 16, blood pressure 113/50. GENERAL APPEARANCE AND MENTAL STATUS: Fair. HEAD/NECK: Normocephalic. Atraumatic. EYES: EOMI. No deformity. EARS: Clear. No ulcers. NOSE: Intact. No lesions. MOUTH: Clear. No discharge. THROAT: Clear. No exudate. LUNGS: Clear. No crackles. CARDIAC: S1, S2. No rub. ABDOMEN: Benign. Bowel sounds positive. GENITALIA/RECTUM: Goldstein absent. BACK/EXTREMITIES: Edema 0+. NEUROLOGICAL: Alert and motor intact. SKIN: LYMPHATICS: LABORATORY DATA: Labs reviewed. IMPRESSION: 1. Stage III chronic kidney disease, stable. 2. Acute kidney injury, stable. 3. Hypokalemia, stable. PLAN: 1. Medication based on GFR appropriate. 2. I will sign off on this patient. 3. Please reconsult as needed. Job ID: [id number]
--- NOTE | 2018-10-29 13:30 | PQF ---
CARMELINA HDEZ, [facility] [id number] [facility]-[id number] CLINICAL DOCUMENTATION IMPROVEMENT CLARIFICATION FORM: ICD-10 Updated PLEASE DO AN ADDENDUM TO THE PROGRESS NOTE WITH ANY DOCUMENTATION UPDATES OR ADDITIONS AND CARRY THROUGH TO DC SUMMARY. THANK YOU. DATE: 10/29/18 ATTN:DR. Krishna DELGADO Please exercise your independent, professional judgment in responding to the clarification form. Clinical indicators are provided on the bottom of this form for your review. Please check appropriate box(s): Acute Encephalopathy: Etiology: [ x] Metabolic [ x] Toxic [ ] D/T DRUGS [ ] Other diagnosis [ ] Unable to determine In addition, please specify: Present on Admission (POA): [ x ] Yes [ ] No [ ] Unable to determine For continuity of documentation, please document condition throughout progress notes and discharge summary. Thank You. CLINICAL INDICATORS - SIGNS / SYMPTOMS / LABS 10/28 PN (OBI) DX/PLAN 18). ACUTE ENCEPHALOPATHY, STATUS ACUTE, COMMENT: PRESENT ON ADMISSION. RISK: FOLATE DEFICIENCY (PN OBI) HX OF ALCOHOL ABUSE (PN OBI) JENNA (PN (OBI) TREATMENTS FOLIC ACID PO (10/27-PRESENT) IV FLUIDS/ BANANNA BAG (10/26-PRESENT) THANK YOU! [employer] (This form is maintained as a part of the permanent medical record) 2014 [employer]. All Rights Reserved [email or web address] [phone] MTDD
[2018-10-29] MEDS: Multivitamins, Adult 10 ML, Folic Acid 1 MG, Thiamine HCl 100 MG in Dextrose 5 %-0.45 %... IV SCH (21:22)
[2018-10-30] MEDS: Levothyroxine Sodium 125 MCG TAB PO SCH (05:13)
[2018-10-30 07:42] LABS: Albumin 3.2 g/dL (3.4-4.8); Anion Gap 11 mmol/L (10-20); BUN (Urea Nitrogen) 9 mg/dL (9.8-20.1); BUN/Creatinine Ratio 9.57; Calc. Creatinine Clearance 64 mL/min (70-130); Calcium 7.6 mg/dL (7.8-10.44); Carbon Dioxide 32 mmol/L (23-31); Chloride 94 mmol/L (98-107); Estimated GFR-MDRD 59; Glucose 106 mg/dL (80-115); Phosphorus 1.1 mg/dL (2.3-4.7); Potassium 3.3 mmol/L (3.5-5.1); Sodium 134 mmol/L (136-145)
--- NOTE | 2018-10-30 09:14 | PDOC.PN ---
- Subjective Encounter Start Date: 10/30/18 Encounter Start Time: 09:12 Subjective: eating.no complaints - Objective Resuscitation Status - Order Detail: 10/26/18 19:42 Resuscitation Status Routine Resuscitation Status: FULL: Full Resuscitation Discussed with: POA: [place] Reviewed: Yes Vital Signs & Weight: Vital Signs (12 hours) Temp Pulse Resp BP BP Pulse Ox 10/30/18 08:00 98.4 F 75 16 117/66 98 10/30/18 04:00 122/61 10/30/18 03:13 98.8 F 69 18 122/61 93 L Weight Admit Weight 158 lb Weight 159 lb 4.8 oz I&O: 10/29/18 10/30/18 10/31/18 06:59 06:59 06:59 Intake Total 5370 1889 Output Total 3800 1400 Balance 1570 489 Result Diagrams: 10/27/18 04:50 10/30/18 06:52 Phys Exam - Physical Examination Neck: no JVD Respiratory: clear to auscultation bilateral Cardiovascular: RRR, no significant murmur Gastrointestinal: positive bowel sounds Musculoskeletal: no edema Dx/Plan (1) Acute renal failure Status: Resolved Qualifiers: Acute renal failure type: unspecified Qualified Code(s): N17.9 - Acute kidney failure, unspecified (2) Chronic alcohol abuse Code(s): F10.10 - ALCOHOL ABUSE, UNCOMPLICATED Status: Acute (3) Demand ischemia of myocardium Code(s): I24.8 - OTHER FORMS OF ACUTE ISCHEMIC HEART DISEASE Status: Acute Comment: Present on admission. (4) Folic acid deficiency Code(s): E53.8 - DEFICIENCY OF OTHER SPECIFIED B GROUP VITAMINS Status: Acute (5) Gait instability Code(s): R26.81 - UNSTEADINESS ON FEET Status: Acute (6) HTN (hypertension) Code(s): I10 - ESSENTIAL (PRIMARY) HYPERTENSION Status: Chronic Qualifiers: Hypertension type: essential hypertension Qualified Code(s): I10 - Essential (primary) hypertension (7) High anion gap metabolic acidosis Code(s): E87.2 - ACIDOSIS Status: Resolved (8) Hypokalemia Code(s): E87.6 - HYPOKALEMIA Status: Acute (9) Hypomagnesemia Code(s): E83.42 - HYPOMAGNESEMIA Status: Resolved (10) Hypophosphatemia Code(s): E83.39 - OTHER DISORDERS OF PHOSPHORUS METABOLISM Status: Acute (11) Nausea and vomiting Code(s): R11.2 - NAUSEA WITH VOMITING, UNSPECIFIED Status: Resolved Qualifiers: Vomiting type: unspecified Vomiting Intractability: unspecified Qualified Code(s): R11.2 - Nausea with vomiting, unspecified (12) Cerebellar ataxia Code(s): G11.9 - HEREDITARY ATAXIA, UNSPECIFIED Status: Acute Comment: due to chronic alcohol abuse (13) Pancytopenia Code(s): D61.818 - OTHER PANCYTOPENIA Status: Acute - Plan rpt cbc -: renalsigned off -: cont vitamins,metoprolol,sythroid * .
[2018-10-30 10:01] LABS: #Basophils 0.1 thou/uL (0.0-0.2); #Eosinphils 0.1 thou/uL (0.0-0.7); #Lymphocytes 1.7 thou/uL (1.20-3.40); #Monocytes 0.5 thou/uL (0.11-0.59); #Neutrophils 1.5 thou/uL (1.40-6.50); %Basophils 2.2 % (0.0-1.0); %Eosinophils 2.5 % (0.0-10.0); %Lymphocytes 44.5 % (21.0-51.0); %Monocytes 12.9 % (0.0-10.0); Hemoglobin 12.2 g/dL (12.0-16.0); Mean Corpuscular HGB CONC 33.8 g/dL (32.0-36.0); Mean Corpuscular Hemoglobin 35.6 pg (27.0-31.0); Mean Platelet Volume 8.4 fL (7.4-10.4); Platelet Count 112 thou/uL (130-400); RBC Distribution Width 13.2 % (11.5-14.5); Red Blood Cell (RBC) Count 3.42 mill/uL (4.20-5.40); White Blood Cell (WBC) Count 3.9 thou/uL (4.8-10.8)
[2018-10-30 10:02] LABS: Macrocytosis MODERATE=16-30 cells (100X) (0-5/hpf)
[2018-10-30 10:03] LABS: Stomatocytes MODERATE= 6-15 cells (100X) (0-1/hpf)
[2018-10-30] MEDS: Bupropion 100 MG SR TAB PO SCH (10:03)
[2018-10-30] MEDS: Folic Acid 1 MG TAB PO SCH (10:04)
[2018-10-30] MEDS: Pantoprazole 40 MG VIAL IVP SCH ×2 (10:04→20:18)
[2018-10-30] MEDS: Cyanocobalamin (Vitamin B-12) 1,000 MCG TAB PO SCH (10:05)
[2018-10-30] MEDS: Enoxaparin Sodium 30 MG/0.3 ML SYRINGE SC SCH (10:05)
[2018-10-30 13:21] VITALS: BMI 28.2
[2018-10-30] MEDS: Multivitamins, Adult 10 ML, Folic Acid 1 MG, Thiamine HCl 100 MG in Dextrose 5 %-0.45 %... IV SCH (20:15)
[2018-10-31 05:13] LABS: Albumin 3.5 g/dL (3.4-4.8); Anion Gap 12 mmol/L (10-20); BUN (Urea Nitrogen) 11 mg/dL (9.8-20.1); BUN/Creatinine Ratio 10.78; Calc. Creatinine Clearance 59 mL/min (70-130); Calcium 8.4 mg/dL (7.8-10.44); Carbon Dioxide 33 mmol/L (23-31); Chloride 95 mmol/L (98-107); Estimated GFR-MDRD 54; Glucose 142 mg/dL (80-115); Phosphorus Less than 1.0 mg/dL (2.3-4.7); Potassium 4.7 mmol/L (3.5-5.1); Sodium 135 mmol/L (136-145)
[2018-10-31] MEDS: Levothyroxine Sodium 125 MCG TAB PO SCH (06:00)
[2018-10-31] MEDS ORDERED: SODIUM CHLORIDE 0.9% IVPB SCH (06:00)
[2018-10-31] MEDS ORDERED: SODIUM PHOSPHATE IVPB SCH (06:00)
[2018-10-31 09:05] VITALS: TEMP 97
--- NOTE | 2018-10-31 09:25 | DIS ---
DATE OF ADMISSION: 10/26/2018 DATE OF DISCHARGE: 10/31/2018 PRIMARY CARE PROVIDER: Gracia Johnson MD FINAL DIAGNOSES: Acute renal failure, alcohol dependence, essential hypertension, anxiety, depression, severe metabolic acidosis, elevated liver function tests, hypophosphatemia, folic acid deficiency, gait unsteadiness related to cerebellar ataxia related to alcohol abuse, and pancytopenia. DISCHARGE MEDICATIONS: 1. Bupropion 200 mg a day. 2. Metoprolol 50 mg a day. 3. Levothyroxine 25 mcg a day. 4. Zoloft 50 mg a day. 5. Thiamine 100 mg a day. 6. Folic acid 1 mg a day. 7. B12, 100 mcg a day. ALLERGIES: NO KNOWN DRUG ALLERGIES. DIET: Heart healthy. PENDING AT THE TIME OF DISCHARGE: Nothing. CODE STATUS: Full. CONSULTATIONS: Alexander Bah MD, Nephrology. PROCEDURES: None. HOSPITAL COURSE: The patient admitted to the hospital through [facility] through [facility] with acute renal failure and metabolic acidosis. Renal ultrasound was unremarkable. MRI of the brain, no acute abnormality. Echocardiogram, EF estimated 70% to 75%. Initial laboratory; ferritin 1927. Serum osmolality 303. Sodium 131, potassium 2.9, chloride 85, CO2 of 18, BUN 47, creatinine 3.76, bilirubin 1.7, AST 107, alkaline phosphatase 152. CK elevated at 727. Hemoglobin 13.1, white count 5.1, and platelet count 76,000. The patient was treated with IV fluids, vitamin replacement. Her folate was 1.9. Thyroid function tests were adequate. She was treated with anti-anxiety medicines, replacement of vitamins, and nutrition. The patient is currently improved to the point that she is alert up in about. Her electrolytes were balanced except for a sodium of 135. Her calcium, which has been low, is returned to normal. Her phosphorus, which has been low, was increased to 1.1. CK is still 361. CBC; white count 3.9, hemoglobin 12.2, and platelet count 112,000. She had a high parathyroid hormone while she was here, most likely related to her severe hypercalcemia. She is being discharged on a heart healthy diet. Follow up with PCP in 1 week. Job ID: [id number]
[2018-10-31] MEDS: Pantoprazole 40 MG VIAL IVP SCH (09:48)
[2018-10-31] MEDS: Bupropion 100 MG SR TAB PO SCH (09:50)
[2018-10-31] MEDS: Cyanocobalamin (Vitamin B-12) 1,000 MCG TAB PO SCH (09:51)
[2018-10-31] MEDS: Folic Acid 1 MG TAB PO SCH (09:51)
[2018-10-31] MEDS: Enoxaparin Sodium 30 MG/0.3 ML SYRINGE SC SCH (09:51)
[2018-10-31 12:56] VITALS: BP 104/64
== END 2018-10-31 14:40 | disposition home or self-care (01) | DRG 682 ==
LOC: ERS 14:58 → 2NO 19:26
PROVIDERS: ADMIT Internal Medicine; ATTEND Internal Medicine
DX: N17.9 Acute kidney failure, unspecified (principal); G93.41 Metabolic encephalopathy; E87.2 Acidosis; E87.1 Hypo-osmolality and hyponatremia; I24.8 Other forms of acute ischemic heart disease; D61.818 Other pancytopenia; E87.8 Other disorders of electrolyte and fluid balance, not elsewhere classified; D64.9 Anemia, unspecified; E86.0 Dehydration; E87.6 Hypokalemia; F41.9 Anxiety disorder, unspecified; E83.42 Hypomagnesemia; E53.8 Deficiency of other specified B group vitamins; E83.51 Hypocalcemia; N18.3 Chronic kidney disease, stage 3 (moderate); I12.9 Hypertensive chronic kidney disease with stage 1 through stage 4 chronic kidney disease, or unspecified chronic kidney disease; G31.2 Degeneration of nervous system due to alcohol; F10.10 Alcohol abuse, uncomplicated; D69.6 Thrombocytopenia, unspecified; F32.9 Major depressive disorder, single episode, unspecified; Z79.899 Other long term (current) drug therapy
CPT/HCPCS: 36415; 70551; 76770; 80069; 80074; 80306; 80307; 81001; 82375; 82436; 82533; 82550; 82553; 82570; 82607; 82693; 82728; 82746; 82805; 83540; 83550; 83690; 83735; 83930; 83935; 83970; 84100; 84133; 84300; 84439; 84443; 84481; 85025; 85652; 93005; 93306; 96361; 96365; C9113; J1650; J2405; J3411; J3475; J7042; J7050; J7070

== ENCOUNTER 2018-12-07 10:19 | Outpatient (CLI) | payer MEDICARE, OTHER ==
--- NOTE | 2018-12-07 11:33 | BD ---
DEXA BONE DENSITY STUDY: Date: 12/07/18 HISTORY: Asymptomatic postmenopausal state for screening. FINDINGS: Lumbar Spine: BMD (g/cm2) L1 0.870 T-Score: -1.1 L2 1.035 T-Score: 0.1 L3 0.994 T-Score: -0.8 L4 1.032 T-Score: -0.3 L1-L4 0.987 T-Score: -0.5 Femoral Neck: 0.745 T-Score: -0.9 Total Femur: 0.830 T-Score: -0.9 IMPRESSION: Normal bone mineral density. POS: TPC
== END 2018-12-07 10:20 | disposition home or self-care (01) ==
LOC: BICMAMMO 10:19
PROVIDERS: ATTEND Family Medicine
DX: Z13.820 Encounter for screening for osteoporosis (principal); Z78.0 Asymptomatic menopausal state
CPT/HCPCS: 77080